=== PATIENT | female | born 1990 | race Caucasian/White ===

== ENCOUNTER 2017-06-20 15:45 | Emergency (ER) | payer OTHER ==
[~2017-06-20] VITALS: Ht 162.6 cm; Wt 47.2 kg
[2017-06-20 15:59] VITALS: BP 131/83
--- NOTE | 2017-06-20 17:42 | NUR ---
PATIENT AMBULATED TO OF 3
--- NOTE | 2017-06-20 18:13 | NUR ---
PT COMES TO ER FOR LUQ PAIN X 1 MONTH WITH MILD NAUSEA, NO VOMITTING. WITH CHILLS, NO FEVERS. PAIN IS THROBBING, INTERMITTENT 5/10 AT THIS TIME, REPORTS HER LAST PERIOD WAS IN Apr, BUT NEG FOR PREG ON TODAYS URINE. PT CAHCTIC LOOKING, REPORTS SHE STOPPED DOING DRUGS 2 MONTHS AGO. DENIES WITHDRAWLS AT THIS TIME. SKIN W/D/I.
--- NOTE | 2017-06-20 18:20 | NUR ---
SHAYNE WALLER ER MD ALMARAZ
--- NOTE | 2017-06-20 19:00 | NUR ---
RECEIVED REPORT REPORT FROM SALONI RN, TRANSFER OF CARE AT THIS TIME.
--- NOTE | 2017-06-20 20:48 | NUR ---
PT STATES SHE DOES NOT WANT TO WAIT ANYMORE, LWBS.
== END 2017-06-20 20:48 | disposition left against medical advice (07) ==
LOC: MED 15:45
DX: R10.9 Unspecified abdominal pain (principal); Z53.21 Procedure and treatment not carried out due to patient leaving prior to being seen by health care provider